=== PATIENT | female | born 1995 | race African-American/Black ===

== ENCOUNTER 2017-04-12 20:28 | Emergency (ER) | payer OTHER ==
[2017-04-12] MEDS ORDERED: ACETAMINOPHEN TAB 650MG DOSE (2X325MG) PO (21:30)
[2017-04-12] MEDS: ACETAMINOPHEN 325 MG TAB PO (21:33)
[2017-04-12 21:46] LABS: BASO % 0.2 % (0.0-1.0); EOS % 0.2 % (0.0-3.0); IMMATURE GRANULOCYTE % 0.3 % (0-0); LYMPH # 2.1 10^3/uL (1.5-6.5); LYMPH % 23.4 % (24.0-44.0); MEAN CORPUSCULAR HEMOGLOBIN 27.2 pg (27.0-33.0); MEAN CORPUSCULAR HGB CONC 32.4 g/dl (32.0-36.5); MEAN CORPUSCULAR VOLUME 83.9 fl (80.0-96.0); MONO # 0.9 10^3/uL (0.0-0.8); MONO % 9.8 % (0.0-5.0); NEUTROPHILS # 5.9 10^3/uL (1.8-7.7); NEUTROPHILS % 66.1 % (36.0-66.0); PLATELET COUNT, AUTOMATED 281 10^3/uL (150-450); WHITE BLOOD COUNT 8.9 10^3/uL (4.0-10.0)
[2017-04-12 21:51] LABS: KETONE, URINE AUTO RFX 1+ mg/dL (NEGATIVE); MUCUS, URINE RFX SMALL (NEGATIVE); NITRITE, URINE AUTO RFX NEGATIVE (NEGATIVE); RBC, URINE AUTO RFX 2 /HPF (0-3); SPECIFIC GRAVITY UR AUTO RFX 1.011 (1.002-1.035); SQUAM EPITHELIAL CELL UR AURFX 17 /HPF (0-6); WBC, URINE AUTO RFX 4 /HPF (0-3)
[2017-04-12 21:58] LABS: ANION GAP 10 MEQ/L (8-16); BLOOD UREA NITROGEN 6 MG/DL (7-18); CALCIUM LEVEL 8.2 MG/DL (8.5-10.1); CARBON DIOXIDE LEVEL 24 MEQ/L (21-32); CHLORIDE LEVEL 104 MEQ/L (98-107); CREATININE FOR GFR 0.58 MG/DL (0.55-1.02); GLOMERULAR FILTRATION RATE > 60.0 (>60); GLUCOSE, FASTING 70 MG/DL (70-105); POTASSIUM SERUM 3.2 MEQ/L (3.5-5.1); SODIUM LEVEL 138 MEQ/L (136-145)
[2017-04-12 22:01] LABS: LEUKOCYTE ESTERASE UR AUTO RFX 1+ (NEGATIVE)
[2017-04-12 22:15] LABS: HCG, SERUM QUANTITATIVE 17514 MIU/ML
[2017-04-12] MEDS: POTASSIUM CHLORIDE 10 MEQ SR TABLET PO (22:44)
[2017-04-12] MEDS: metroNIDAZOLE (FLAGYL) 500 MG TAB PO (22:58)
== END 2017-04-12 23:11 | disposition home or self-care (01) ==
LOC: M ED 20:28
DX: O23.592 Infection of other part of genital tract in pregnancy, second trimester (principal); O99.012 Anemia complicating pregnancy, second trimester; D64.9 Anemia, unspecified; O99.282 Endocrine, nutritional and metabolic diseases complicating pregnancy, second trimester; E87.6 Hypokalemia; Z3A.18 18 weeks gestation of pregnancy; Z98.890 Other specified postprocedural states; Z88.0 Allergy status to penicillin
CPT/HCPCS: 76811

== ENCOUNTER 2017-08-02 14:32 | Outpatient (CLI) | payer OTHER | END 2017-08-02 17:40 | disposition home or self-care (01) | LOC: M LDO 14:32 | DX: Z04.3 Encounter for examination and observation following other accident (principal); O34.63 Maternal care for abnormality of vagina, third trimester; W00.9XXA Unspecified fall due to ice and snow, initial encounter; Y92.89 Other specified places as the place of occurrence of the external cause; Y93.89 Activity, other specified; Y99.8 Other external cause status; Z3A.34 34 weeks gestation of pregnancy | CPT/HCPCS: 59025 ==